=== PATIENT | male | born 2000 | race Caucasian/White ===

== ENCOUNTER 2023-06-05 10:05 | Emergency (ER) | payer OTHER ==
[~2023-06-05] VITALS: Ht 185.4 cm; Wt 68.0 kg
[2023-06-05 10:11] VITALS: O2SAT 99
[2023-06-05] MEDS: LEVETIRACETAM 500MG PREMIX 100 ML IV ONE (10:33)
[2023-06-05] MEDS: IBUPROFEN 600MG TABLET PO STA (10:34)
[2023-06-05 10:49] LABS: BASOPHILS % 0.8 % (0.0-2.0); EOSINOPHILS % 1.4 % (0.0-5.0); HEMATOCRIT. 46.8 % (42.0-52.0); HEMOGLOBIN. 15.6 g/dL (14.0-18.0); LYMPHOCYTES % 26.8 % (20.0-50.0); MEAN CORPUSCULAR HGB CONC 33.3 g/dL (31.0-37.0); MEAN PLATELET VOLUME 9.3 fl (7.4-10.4); MONOCYTES % 6.6 % (2.0-8.0); NEUTROPHILS % 64.4 % (40.0-76.0); PLATELET 156 x1000/uL (130-400); RED BLOOD CELL COUNT 4.73 mill/uL (4.7-6.1); RED CELL DISTRIBUTION WIDTH 14.2 % (11.6-14.6); WHITE BLOOD COUNT 6.9 x1000/uL (4.5-11.0)
[2023-06-05 10:58] LABS: CLARITY URINE CLEAR (CLEAR); COLOR URINE YELLOW (YELLOW); GLUCOSE URINE NEGATIVE (NEGATIVE); KETONES URINE NEGATIVE (NEGATIVE); LEUKOCYTE ESTERASE URINE NEGATIVE (NEGATIVE); NITRITE URINE NEGATIVE (NEGATIVE); OCCULT BLOOD URINE NEGATIVE (NEGATIVE); PH URINE 5.5 (4.5-8.0); PROTEIN URINE TRACE (NEGATIVE); SPECIFIC GRAVITY URINE 1.015 (1.005-1.030); UROBILINOGEN URINE 0.2 E.U./dL (0.2-1.0)
[2023-06-05 11:01] LABS: ALANINE AMINOTRANSFERASE 76 IU/L (10-49); ALBUMIN 4.7 g/dL (3.2-4.8); ASPARTATE AMINOTRANSFERASE 93 IU/L (<34); BILIRUBIN TOTAL 0.4 mg/dL (0.1-1.0); CALCIUM 9.3 mg/dL (8.7-10.4); CARBON DIOXIDE 20 mEq/L (21-32); CHLORIDE 107 mEq/L (98-107); CREATININE 1.2 mg/dL (0.6-1.3); ETHANOL BLOOD < 10 mg/dL (<10); GLUCOSE 99 mg/dL (70-105); POTASSIUM 4.3 mEq/L (3.5-5.1); PROTEIN TOTAL 7.8 g/dL (6.0-8.3); SODIUM 138 mEq/L (136-145); UREA NITROGEN BLOOD 9 mg/dL (9-23)
[2023-06-05 11:25] LABS: BACTERIA URINE RARE; RBC URINE NONE SEEN /hpf (0-2); SQUAMOUS EPITHELIAL CELL URINE NONE SEEN /lpf (RARE/1+); WBC URINE 0-2 /hpf (0-2); YEAST URINE NONE SEEN
[2023-06-05 11:31] LABS: *AMPHETAMINES SCREEN URINE NEGATIVE (NEGATIVE); *BARBITURATES SCREEN URINE NEGATIVE (NEGATIVE); *BENZODIAZEPINES SCREEN URINE NEGATIVE (NEGATIVE); *COCAINE SCREEN URINE PRESUMPTIVE POSITIVE (NEGATIVE); CANNABINOID URINE SCREEN PRESUMPTIVE POSITIVE (NEGATIVE); ECSTASY MDMA SCREEN URINE NEGATIVE (NEGATIVE); METHADONE URINE SCREEN Neg (NEGATIVE); OPIATES URINE SCREEN NEGATIVE (NEGATIVE); PHENCYCLIDINE URINE SCREEN NEGATIVE (NEGATIVE)
[2023-06-05] MEDS ORDERED: KEPP500 MT (12:44)
[2023-06-05 13:27] VITALS: BP 115/63; PULSE 73; RESP 18; TEMP 98.2
== END 2023-06-05 13:40 | disposition home or self-care (01) ==
LOC: ER 10:56
DX: G40.901 Epilepsy, unspecified, not intractable, with status epilepticus (principal); T40.5X1A Poisoning by cocaine, accidental (unintentional), initial encounter; Y92.9 Unspecified place or not applicable
CPT/HCPCS: 80053; 80305; 81003; 80320; 85025; 36415; 70450; 96365; 99291; J1953; Z7610 ×2; G0480

== ENCOUNTER 2025-03-10 22:02 | Inpatient (IN) | payer SELFPAY ==
[~2025-03-10] VITALS: Ht 195.6 cm; Wt 70.3 kg
[~2025-03-10 22:02] MED LIST: LEVE1000 MT
[2025-03-10 22:07] VITALS: O2SAT 99
[2025-03-10] MEDS: SODIUM CHLORIDE 0.9% 1,000 ML IV ONE (22:41)
[2025-03-10] MEDS: LEVETIRACETAM 1000MG PREMIX 100 ML IV ONE (22:41)
[2025-03-10] MEDS: LORAZEPAM 2MG/ML UD SYRINGE IV NR (22:55)
[2025-03-10] MEDS: ACETAMINOPHEN 500MG TABLET PO ONE (22:55)
[2025-03-10 22:59] LABS: BASOPHILS % 0.9 % (0.0-2.0); EOSINOPHILS % 1.3 % (0.0-5.0); HEMATOCRIT. 47.4 % (42.0-52.0); HEMOGLOBIN. 15.4 g/dL (14.0-18.0); LYMPHOCYTES % 31.7 % (20.0-50.0); MONOCYTES % 9.0 % (2.0-8.0); NEUTROPHILS % 57.1 % (40.0-76.0); RED BLOOD CELL COUNT 4.88 mill/uL (4.7-6.1); RED CELL DISTRIBUTION WIDTH 13.8 % (11.6-14.6)
[2025-03-10 23:13] LABS: CREATININE 1.2 mg/dL (0.6-1.3); UREA NITROGEN BLOOD 8 mg/dL (9-23)
[2025-03-10 23:14] LABS: ETHANOL BLOOD 70 mg/dL (<10); PROTEIN TOTAL 7.3 g/dL (6.0-8.3)
[2025-03-10 23:15] LABS: ASPARTATE AMINOTRANSFERASE 27 IU/L (<34); BILIRUBIN DIRECT < 0.1 mg/dL (<=3.0)
[2025-03-10 23:16] LABS: BILIRUBIN TOTAL 0.2 mg/dL (0.1-1.0)
[2025-03-10 23:23] LABS: GLUCOSE URINE NEGATIVE (NEGATIVE); KETONES URINE NEGATIVE (NEGATIVE); LEUKOCYTE ESTERASE URINE NEGATIVE (NEGATIVE); NITRITE URINE NEGATIVE (NEGATIVE); OCCULT BLOOD URINE NEGATIVE (NEGATIVE); PH URINE 5.5 (4.5-8.0); PROTEIN URINE TRACE (NEGATIVE); SPECIFIC GRAVITY URINE 1.015 (1.005-1.030); UROBILINOGEN URINE 1.0 E.U./dL (0.2-1.0)
[2025-03-10 23:33] LABS: *AMPHETAMINES SCREEN URINE NEGATIVE (NEGATIVE); *BENZODIAZEPINES SCREEN URINE NEGATIVE (NEGATIVE)
[2025-03-10 23:34] LABS: *BARBITURATES SCREEN URINE NEGATIVE (NEGATIVE); *COCAINE SCREEN URINE NEGATIVE (NEGATIVE); CANNABINOID URINE SCREEN PRESUMPTIVE POSITIVE (NEGATIVE); ECSTASY MDMA SCREEN URINE NEGATIVE (NEGATIVE); METHADONE URINE SCREEN NEGATIVE (NEGATIVE); OPIATES URINE SCREEN NEGATIVE (NEGATIVE); PHENCYCLIDINE URINE SCREEN NEGATIVE (NEGATIVE)
[2025-03-10 23:41] LABS: MEAN PLATELET VOLUME 9.4 fl (7.4-10.4); PLATELET 206 x1000/uL (130-400)
[2025-03-10 23:48] LABS: CLARITY URINE SL HAZY (CLEAR); COLOR URINE STRAW (YELLOW)
[2025-03-10 23:49] LABS: BACTERIA URINE NONE SEEN; MUCUS URINE TRACE /lpf (NONE/TRACE); RBC URINE NONE SEEN /hpf (0-2); SQUAMOUS EPITHELIAL CELL URINE RARE /lpf (RARE/1+); WBC URINE 0-2 /hpf (0-2)
[2025-03-11 01:12] VITALS: BP 106/63; PULSE 79; RESP 16; TEMP 36.4736
[2025-03-11] MEDS ORDERED: ACETAMINOPHEN 325MG TABLET PO PRN (03:30)
[2025-03-11] MEDS ORDERED: GUAIFENESIN 200MG/10ML SUGAR FREE UDC PO PRN (03:30)
[2025-03-11] MEDS ORDERED: CLONIDINE 0.1MG TABLET PO PRN (03:30)
[2025-03-11] MEDS ORDERED: MAGNESIUM/ALUMINUM HYDROXIDE/SIMETHICONE 30ML UDC PO PRN (03:30)
[2025-03-11 04:00] VITALS: BP 103/61; PULSE 65; RESP 18; TEMP 36.8; O2SAT 96
[2025-03-11] MEDS: ACETAMINOPHEN 325MG TABLET PO PRN (04:37)
[2025-03-11] MEDS: LEVETIRACETAM 1000MG PREMIX 100 ML IV SCH (08:46)
[2025-03-11] MEDS: THIAMINE HCL 100MG TABLET PO SCH (08:47)
[2025-03-11] MEDS ORDERED: LEVETIRACETAM 1,000MG in NACL 100ML PREMIX IV SCH (09:00)
[2025-03-11 12:00] VITALS: BP 111/65; PULSE 62; RESP 20; TEMP 36.4; O2SAT 99
== END 2025-03-11 15:22 | disposition left against medical advice (07) | DRG 53 ==
LOC: ER 22:02 → 5WST 23:39 → EDBEDREQTM 23:46 → EDBEDREQ 23:46 → ENRESERV 03-11
PROVIDERS: ADMIT Internal Medicine; ATTEND Internal Medicine
DX: G40.909 Epilepsy, unspecified, not intractable, without status epilepticus (principal); F10.90 Alcohol use, unspecified, uncomplicated; Z53.29 Procedure and treatment not carried out because of patient's decision for other reasons; Y90.9 Presence of alcohol in blood, level not specified; Z91.199 Patient's noncompliance with other medical treatment and regimen due to unspecified reason
CPT/HCPCS: 36415; 80048; 80076; 80305; 80320; 81003; 82542; 82962; 83735; 85025; 93005; 96365; 96375; 99285; J1953; J2060; J7030; G0480

== ENCOUNTER 2025-03-22 01:48 | Emergency (ER) | payer MEDICAID ==
[~2025-03-22] VITALS: Ht 198.1 cm; Wt 78.0 kg
[2025-03-22 01:51] VITALS: O2SAT 100
[2025-03-22] MEDS: LEVETIRACETAM 1000MG PREMIX 100 ML IV ONE (02:30)
[2025-03-22] MEDS ORDERED: LEVE1000 MT (03:32)
[2025-03-22 05:17] VITALS: BP 105/71; PULSE 86; RESP 16; TEMP 37; O2SAT 95
== END 2025-03-22 05:37 | disposition home or self-care (01) ==
LOC: ER 01:48
DX: G40.909 Epilepsy, unspecified, not intractable, without status epilepticus (principal); R51.9 Headache, unspecified; R53.1 Weakness
CPT/HCPCS: 99283; 96374; 82962; J1953

== ENCOUNTER 2025-03-22 05:56 | Emergency (ER) | payer MEDICAID ==
[~2025-03-22] VITALS: Ht 198.1 cm; Wt 80.0 kg
[2025-03-22 07:17] LABS: BASOPHILS % 0.5 % (0.0-2.0); EOSINOPHILS % 0.2 % (0.0-5.0); HEMATOCRIT. 42.1 % (42.0-52.0); HEMOGLOBIN. 14.3 g/dL (14.0-18.0); LYMPHOCYTES % 13.6 % (20.0-50.0); MEAN PLATELET VOLUME 9.1 fl (7.4-10.4); MONOCYTES % 7.4 % (2.0-8.0); NEUTROPHILS % 78.3 % (40.0-76.0); PLATELET 204 x1000/uL (130-400); RED BLOOD CELL COUNT 4.39 mill/uL (4.7-6.1); RED CELL DISTRIBUTION WIDTH 13.8 % (11.6-14.6)
[2025-03-22 07:35] LABS: CREATININE 1.0 mg/dL (0.6-1.3)
[2025-03-22 07:36] LABS: PROTEIN TOTAL 7.1 g/dL (6.0-8.3); UREA NITROGEN BLOOD 9 mg/dL (9-23)
[2025-03-22 07:37] LABS: ASPARTATE AMINOTRANSFERASE 26 IU/L (<34)
[2025-03-22 07:38] LABS: BILIRUBIN DIRECT 0.2 mg/dL (<=3.0); BILIRUBIN TOTAL 0.7 mg/dL (0.1-1.0)
[2025-03-22] MEDS: ACETAMINOPHEN 500MG TABLET PO ONE (08:07)
[2025-03-22] MEDS: METOCLOPRAMIDE HCL 10MG/2ML VIAL IV ONE (08:07)
[2025-03-22] MEDS: KETOROLAC 15MG/ML VIAL IV ONE (08:07)
[2025-03-22] MEDS ORDERED: LEVETIRACETAM 1000MG PREMIX 100 ML IV SCH (11:45)
[2025-03-22] MEDS ORDERED: LORAZEPAM 2MG/ML UD SYRINGE IV PRN (11:45)
[2025-03-22] MEDS ORDERED: ACETAMINOPHEN 325MG TABLET PO PRN ×2 (11:45)
[2025-03-22] MEDS ORDERED: ONDANSETRON HCL 4MG/2ML INJ IV PRN (11:45)
[2025-03-22 12:05] VITALS: BP 107/63; PULSE 71; RESP 14; TEMP 36.7; O2SAT 100
[2025-03-22] MEDS ORDERED: LEVETIRACETAM 1,000MG in NACL 100ML PREMIX IV SCH (21:00)
== END 2025-03-22 12:06 | disposition left against medical advice (07) ==
LOC: ER 06:08 → EDBEDREQSVC 10:49 → EDBEDREQ 10:49 → EDBEDREQTM 10:49 → ER 12:06 → CANBEDREQ 12:13
DX: G40.409 Other generalized epilepsy and epileptic syndromes, not intractable, without status epilepticus (principal); R51.9 Headache, unspecified; R42 Dizziness and giddiness; R11.0 Nausea; F17.210 Nicotine dependence, cigarettes, uncomplicated; Z79.899 Other long term (current) drug therapy
CPT/HCPCS: 80076; 80048; 85025; 36415; 93005; 96374; 96375; 99285; J1885; J2765; Z7610